=== PATIENT | female | born 1965 | race Caucasian/White ===

== ENCOUNTER 2017-03-19 05:59 | Day surgery (SDC) | payer MEDICARE, MEDICAID ==
[~2017-03-19] VITALS: Ht 154.9 cm; Wt 63.5 kg
[~2017-03-19 05:59] MED LIST: CYMBALTA30 MG PO; HYDROXYZINE HCL50 MG PO; NEURONTIN 300300 MG PO; NEXIUM40 MG PO
[2017-03-19 06:59] LABS: HEMATOCRIT 45.3 % (36.0-48.0); HEMOGLOBIN 14.9 g/dL (12-16); MCH 28.5 pg (26.0-34.0); MCHC 32.9 g/dL (31.0-37.0); MCV 86.6 fL (80.0-100.0); MEAN PLATELET VOLUME 9.8 fL (7.4-10.4); RBC 5.23 10x6/uL (4.00-5.40); RDW 13.9 % (11.5-14.5); WBC 6.6 10x3/uL (4.8-10.8)
[2017-03-19 07:26] VITALS: BP 128/79; Ht 154.9 cm; Wt 63.5 kg
--- NOTE | 2017-03-26 11:32 | OP ---
PATIENT NAME: SAQIB VERGARA MEDICAL RECORD: [id number] :65 LOCATION:[facility] ADMISSION DATE: SURGEON: HAYDEE GALLOWAY DPM DATE OF OPERATION: 03/19/2017 PREOPERATIVE DIAGNOSES: 1. Painful retained hardware, right fibula. 2. Left hallux abducto valgus. 3. Instability, left first met-cuneiform joint. 4. Painful spur, dorsal left foot. POSTOPERATIVE DIAGNOSES: 1. Painful retained hardware, right fibula. 2. Left hallux abducto valgus. 3. Instability, left first met-cuneiform joint. 4. Painful spur, dorsal left foot. PROCEDURES: 1. Plate removal of screws, right fibula. 2. Fischer bunionectomy, left foot. 3. First met-cuneiform joint fusion, left foot. 4. Left dorsal foot spur removal. ANESTHESIA: General with local infiltrate utilizing lidocaine and Marcaine plain, approximately 30 cc total around the left first ray, dorsal left foot, and the lateral right lower leg. HEMOSTASIS: Bilateral thigh tourniquet at 350 mmHg. PREOPERATIVE DETAILS: The patient was taken to the OR and placed on the operating table in a supine position followed by induction of general anesthesia and infiltration of local anesthetic. The right and left extremities were then prepped and draped in usual aseptic technique followed by exsanguination of the right extremity and inflation of tourniquet. Procedure number 1, removal of fibular plate, right lower leg. A 15-blade was used to create incision over the lateral aspect of the lower right fibula. The incision was deepened down through subcutaneous tissue to the plate and some of the screws were already loose, the screws were removed, and the plate was removed from the fibula. The wound was flushed. The deep tissue was repaired with 2-0 Vicryl, the subcutaneous tissue with 4-0 Rapide, and the skin was closed with 4-0 Rapide in a subcuticular technique followed by Dermabond, Adaptic, 4 x 4, and conform followed by Kerlix were then applied to the wound. Tourniquet was deflated. The left extremity was then exsanguinated and the tourniquet was inflated. Procedure number 2, Fischer bunionectomy, left foot. A 15-blade was used to create an incision over the dorsal aspect of the first metatarsal extending to the base of the proximal phalanx of the hallux. The incision was deepened down through subcutaneous tissue to the first MPJ and an inverted L capsulotomy was performed. The medial capsular flap was reflected and the head of the first metatarsal was delivered. A sagittal saw was used to resect the medial eminence. Attention was then directed to the first interspace where a lateral release was performed. Good clinical reduction of the lateral contractures was verified. OPERATIVE REPORT [id number] SAQIB VERGARA Procedure number 3, first met-cuneiform joint fusion, left foot. The incision as described in #2 was lengthened proximal to the dorsal aspect of the medial cuneiform. The incision was deepened down through subcutaneous tissue being sure to avoid all vital structures. A linear periosteal incision was then made and the first met-cuneiform joint was delivered. A sagittal saw was used to resect the joint. Temporary fixation was placed. Excellent alignment was noted and a 5-hole plate with 1 hole one screw crossing the fusion site was placed with excellent rigid internal fixation. C-arm was used to verify good alignment and placement. The wound was flushed. A 2-0 Vicryl was used to repair the joint capsule on the first MPJ followed by closure of deep tissue with 2-0 Vicryl. The subcutaneous tissue was then reapproximated with 4-0 Rapide and the skin was closed with 4-0 Rapide in a subcuticular technique followed by Dermabond. Procedure number 4, spur removal, dorsal aspect of left foot. The incision was made over the dorsal aspect of the lateral cuneiform and as its articulation with the third metatarsal. The incision deepened down through subcutaneous tissue being sure to avoid all vital structures. The nerve and artery were retracted in the wound. Dissection was carried down to the periosteum, which was freed, a rongeur as well as a rasp were used to remove the bone spurs and smooth the area. Good reduction was noted. The wound was flushed. The deep tissue was reapproximated with 4-0 Rapide, the subcutaneous tissue with 4-0 Rapide, and the skin was closed with 4-0 Rapide in a subcuticular technique followed by Dermabond, Adaptic, 4 x 4s, and conform was used to dress the wounds of the left foot followed by application of a modified Muro compression dressing. Tourniquet was deflated. POSTOPERATIVE DETAILS: The patient tolerated the procedure well and left the OR with vital signs stable and vascular status at preoperative levels. The patient was transported to recovery per anesthesia in stable condition. 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
== END 2017-03-19 14:15 | disposition home or self-care (01) ==
LOC: D.OPS 05:59
PROVIDERS: Anesthesiology
DX: T84.84XA Pain due to internal orthopedic prosthetic devices, implants and grafts, initial encounter (principal); M25.571 Pain in right ankle and joints of right foot; M20.12 Hallux valgus (acquired), left foot; M25.375 Other instability, left foot; M77.52 Other enthesopathy of left foot and ankle; Z01.812 Encounter for preprocedural laboratory examination